=== PATIENT | male | born 1940 | race Caucasian/White ===

== ENCOUNTER 2020-04-01 19:03 | Emergency (ER) | payer MEDICARE, OTHER ==
[~2020-04-01] VITALS: Ht 182.9 cm; Wt 90.0 kg
[~2020-04-01 19:03] MED LIST: LISI-170 PO; LOVA20TA2 PO
--- NOTE | 2020-04-01 19:23 | NUR ---
INITIAL PT CONTACT. PT REPORTS TO ED C/O HIGH BLOOD PRESSURE, "I HAVE HIGH BLOOD PRESSURE AND I CANT CONTROL IT." NO AARON, DIZZINESS OR VISUAL CHANGES. PT REPROTS BP HAS BEEN ELEVATED FOR ABOUT 3-4 DAYS. PT ALSO C/O OF RIGHT UPPER LEG/THIGH NUMBNESS THAT HAS BEEN PRESENT INTERMITTENTLY FOR APPROX 4 MONTHS. DENIES ANY RECENT TRAUMA OR INJURY TO THE AREA. PT STATES "I TOOK CLONDINE, I THINK 0.5MG) @ 1800". PT SITTING UPRIGHT ON SHAJI PALM. AT BEDSIDE. PT DENIES ANY NEEDS AT THIS TIME. CALL LIGHT AND PERSONAL BELONGINGS WITHIN REACH. AWAITING ERP.
[2020-04-01] MEDS ORDERED: LABETALOL 5MG/ML, 20ML IVPush ONE (19:34)
--- NOTE | 2020-04-01 19:50 | NUR ---
PT TO MRI Addendum: 04/01/20 at 2007 by MOHIT PT TO CT
[2020-04-01] MEDS ORDERED: LABETALOL 5MG/ML, 20ML ONE (19:54)
[2020-04-01] MEDS ORDERED: SODIUM CHLORIDE FLUSH 10ML SYR IVF ONE (20:00)
--- NOTE | 2020-04-01 20:20 | NUR ---
PT TO MRI
[2020-04-01] MEDS ORDERED: GADOTERATE 10 MMOL/20ML SYR ONE (20:23)
[2020-04-01 20:37] LABS: BASOPHILS % (AUTO) 0 % (0-1); EOSINOPHILS % (AUTO) 0 % (1-7); LYMPHOCYTES % (AUTO) 9 % (22-44); MEAN CORPUSCULAR HEMOGLOBIN 30.4 pg (27.5-34.5); MEAN CORPUSCULAR HGB CONC 34.2 g/dL (33.2-36.2); MEAN PLATELET VOLUME 9.8 fL (7.4-10.4); MONOCYTES % (AUTO) 4 % (2-9); NEUTROPHILS % (AUTO) 87 % (42-75); PLATELET COUNT 156 x10^3/uL (130-400); RED BLOOD COUNT 4.58 x10^6/uL (4.38-5.82); RED CELL DISTRIBUTION WIDTH 13.2 % (9.4-14.8)
[2020-04-01 20:39] LABS: MD NO
[2020-04-01 20:42] LABS: ALANINE AMINOTRANSFERASE 37 U/L (12-78); ALBUMIN 4.2 g/dL (3.4-5.0); ANION GAP 10 mmol/L (5-15); CHLORIDE 111 mmol/L (98-107); CREATININE 1.84 mg/dL (0.7-1.3)
[2020-04-01 20:46] LABS: ALKALINE PHOSPHATASE 88 U/L (45-117); BILIRUBIN,TOTAL 0.5 mg/dL (0.2-1.0); TOTAL PROTEIN 7.5 g/dL (6.4-8.2); TROPONIN I < 0.015 ng/mL (0.000-0.045)
--- NOTE | 2020-04-01 21:02 | NUR ---
PT RETURNED FROM MRI. PT SITTING UPRIGHT ON SHAJI PALM. AT BEDSIDE. PT DENIES ANY NEEDS AT THIS TIME. CALL LIGHT AND PERSONAL BELONGINGS WITHIN REACH. AWAITING ERP. Addendum: 04/01/20 at 2103 by MINGALLS PT RETURNED FROM MRI. PT SITTING UPRIGHT ON SHAJI PALM. AT BEDSIDE. PT DENIES ANY NEEDS AT THIS TIME. CALL LIGHT AND PERSONAL BELONGINGS WITHIN REACH.
--- NOTE | 2020-04-01 22:03 | NUR ---
PT SITTING UPRIGHT ON SHAJI PALM. AT BEDSIDE. PT DENIES ANY NEEDS AT THIS TIME. CALL LIGHT AND PERSONAL BELONGINGS WITHIN REACH. AWAITING ERP FOR RECHECK
[2020-04-01 23:04] VITALS: BP 128/62
--- NOTE | 2020-04-01 23:37 | NUR ---
Patient given discharge instructions and they have confirmed that they understand the instructions. Patient ambulatory with steady gait.
== END 2020-04-01 23:39 | disposition home or self-care (01) ==
LOC: ED 21:34
DX: G89.29 Other chronic pain (principal); M25.551 Pain in right hip; M79.604 Pain in right leg; I10 Essential (primary) hypertension; R94.31 Abnormal electrocardiogram [ECG] [EKG]; R20.0 Anesthesia of skin; R51.9 Headache, unspecified
CPT/HCPCS: 36415; 70450; 72158; 80053; 84484; 85025; 93005; 96374; 99285; A9575